=== PATIENT | female | born 1970 | race Caucasian/White ===

== ENCOUNTER 2016-04-15 17:28 | Emergency (ER) | payer OTHER ==
[~2016-04-15] VITALS: Ht 160 cm; Wt 126.0 kg
[2016-04-15 17:40] VITALS: BP 117/71; PULSE 72; RESP 21; O2SAT 100
--- NOTE | 2016-04-15 17:58 | ED.REPORT ---
HPI-Chest Pain 40 and Over Date of Service Apr 15, 2016 ED Provider: The patient is a 46 year old female with history of COPD, asthma, and anxiety who was sent to the emergency department from urgent care for left-sided chest pain that she first noticed this morning when she woke up. She states it felt like she had 2 pots of coffee and describes the pain as an ache. Her pain radiated into her left shoulder and neck. She went to the local fire station after her symptoms began to have her blood pressure checked. Her blood pressure was 197/98 and they sent her to urgent care. She had an EKG, was given aspirin, and sent to the ED. She feels like she is unable to get a full breath. She stills complains of achiness and tightness to her left chest and shoulder. She noticed some nausea this afternoon. She denies diaphoresis, lower extremity swelling or shortness of breath. Her symptoms are not similar to previous anxiety or panic attacks. The patient does report that her mother 5 weeks ago and she has been under a lot of stress. She denies history of hypertension or cardia disease. She denies family history of cardiac disease. She is a lifelong nonsmoker. Nursing Notes Stated Complaint: BLOOD PRESSURE UP, CHEST PAIN, SENT FROM [facility] Chief Complaint: Chest Pain Nursing Notes Reviewed: Yes Allergies: Coded Allergies: [place] And Derivatives (Verified Adverse Reaction, Intermediate, SORES IN MOUTH, 04/15/16) codeine (Verified Adverse Reaction, Intermediate, Nausea, 04/15/16) General Time Seen by MD: 17:58 Chief Complaint Chest pain Hx Obtained From: Patient Arrived By: Walk-in Sudden in Onset?: Yes Onset Occurred: 9 - 12 hours ago Symptom Duration: Since onset Location: : Chest left Quality: Aching, Painful Radiation: : Neck: Shoulder left Severity: Current: Moderate Severity: Maximum: Moderate Recent Healthcare: No recent hospitalization, Recent doctor visit Similar Sx Previous: No Past Medical History Past Medical History Anxiety Asthma COPD Family History Noncontributory Smoking History Former Smoker Social History Alcohol Use: Denies alcohol use Drug Use: Denies drug use Other Social History: Good social support, , Lives with children, Local resident Ambulatory Status Independent Review of Systems Respiratory: Denies: Shortness of breath Cardiovascular: Reports: Chest pain GI: Reports: Nausea Musculoskeletal: Reports: Joint pain, Neck pain Skin: Denies Diaphoresis Complete sys rev & neg: except as marked. Physical Exam Initial Vital Signs Vital Signs (First) Date Time Temp Pulse Resp B/P Pulse Ox O2 Delivery O2 Flow Rate FiO2 04/15/16 17:40 36.8 72 21 117/71 100 Room Air Initial VS: Reviewed Head / Eyes: Atraumatic, Normocephalic, PERRL ENT: Mucous membranes moist, Conjunctiva normal, No scleral icterus Neck: Supple, Non-tender, Full range of motion Lymphatic: No lymphadenopathy Extremities: Vascular intact, Neuro intact, No swelling, No tenderness Skin: Warm, Dry, No cyanosis Neurologic: Alert, Oriented, Nonfocal Psychiatric: Mood/affect normal, Behavior normal, Normal thought content General/Constitutional: Awake, Alert, No acute distress, Well appearing, Cooperative Appearance / Presentation: Positive: Obese Respiratory / Chest: Atraumatic, Breath sounds NL, Breath sounds = bilat, No respiratory distress, No rales, No rhonchi, No wheezing, No stridor, No chest tenderness Cardiovascular: Heart rate NL, Regular rhythm, Heart sounds NL, No gallop, No murmurs, No rubs, Peripheral circulation NL, Pulses = bilaterally, No gross BP differential Abdomen: Atraumatic, Soft, Non-tender, McBurney's non-tender, No guarding, No rebound, BS normoactive, No distention, No hernia, No palpable mass Interpretation & Diagnostics Lab Results Interpretation Result Diagram: 04/15/16175804/15/161758 Test 04/15/16 17:59 04/15/16 21:15 White Blood Count 11.8th/mm3 (3.8-10.1) Red Blood Count 4.69mil/mm3 (3.90-5.20) Hemoglobin 13.7g/dL (12.0-15.6) Hematocrit 40.4% (35.0-46.0) Mean Corpuscular Volume 86.1fL (81-100) Mean Corpuscular Hemoglobin 29.2pg (27.0-35.0) Mean Corpuscular Hemoglobin Concent 33.9% (32.0-37.0) Red Cell Distribution Width 13.0% (12.3-15.4) Platelet Count 182bil/L (150-400) Neutrophils (%) (Auto) 52.8% (40-74) Lymphocytes (%) (Auto) 36.0% (14-46) Monocytes (%) (Auto) 8.0% (4-12) Eosinophils (%) (Auto) 2.6% (0-5) Basophils (%) (Auto) 0.3% (0-3) Sodium Level 136mEq/L (134-144) Potassium Level 4.1mEq/L (3.5-5.2) Chloride Level 102mEq/L (97-108) Carbon Dioxide Level 22mmol/L (18-29) Blood Urea Nitrogen 11mg/dL (6-24) Creatinine 0.44mg/dL (0.57-1.00) Estimat Glomerular Filtration Rate 219mL/min (>59) Glucose Level 114mg/dL (60-99) Calcium Level 9.3mg/dL (8.5-10.1) Magnesium Level 2.0mg/dL (1.6-2.6) Total Bilirubin 0.6mg/dL (0.0-1.2) Aspartate Amino Transf (AST/SGOT) 26U/L (0-50) Alanine Aminotransferase (ALT/SGPT) 19U/L (0-32) Alkaline Phosphatase 90U/L (25-150) Total Protein 6.8g/dL (6.4-8.4) Albumin 3.6g/dL (3.4-5.0) Hold Simmons Top Tube Received (Received) Troponin T 0.010ug/L (0.0-0.011) ECG Interpretation ECG Interpretation: Normal sinus rhythm with a rate of [address] elevation No T wave inversion S wave in lead I Time: 18:13 Interpreted by: ED physician X-Ray Chest Interpretation Chest Xray Interpretation: IMPRESSION: Negative chest. Dictated by: Mele Pond M.D. on 04/15/2016 at 19:23 Interpretation / Wet Read by: Interpret - Radiologist Re-Eval/Medical Decision Med Decision/Clinical Course 46-year-old female with past medical history of anxiety here with left-sided chest pain without associated symptoms. Differential diagnosis includes but is not limited to ACS versus anxiety versus PE versus pneumonia. Chest x-ray is unremarkable. At this time, I do not feel patient has PE. She is PERC negative. Her initial troponin and 3 hour troponin are both negative. Her EKG is unremarkable. I have given her very strict return precautions and she is amenable to discharge at this time and already has a follow-up appointment scheduled with her primary care physician this week. Source of Hx: Old records Time of Eval: 19:10 Re-Evaluation/Progress Note: Rechecked the patient. Discussed lab results and plan for 3 hour troponin level. Time of Eval: 22:05 Re-Evaluation/Progress Note: Recheckd the patient. Discussed results, diagnosis, and plan for discharge. All questions were addressed. Counseled Regarding: Diagnosis, Lab results, Need for follow-up, When/why to return to ED Discharge & Departure Primary Impression: Chest pain Chest pain type: unspecified Qualified Code: R07.9 - Chest pain, unspecified Additional Impression: Hypertension Hypertension type: unspecified secondary hypertension Hypertension goal: unspecified goal Qualified Code: I15.9 - Secondary hypertension, unspecified Disposition: Home Discharge Condition All VS Reviewed: Yes Condition: Stable Patient Instructions: Chest Pain (ED) Additional Instructions: Thank you for entrusting us with your care today. Your workup today is negative. There is no evidence of a heart attack. Followup with your regular doctor in the next few days for re-evaluation. Your blood pressure was high today. You should discuss this with your regular doctor. Please return to the emergency department for any new or concerning symptoms. Scribe Attestation Portions of this note were transcribed by Aline Renee. I, Dr. Bee personally performed the history, physical exam and medical decision-making; I reviewed and confirmed the accuracy of the information in the transcribed note. Signed by: Ania Buckley, 04/15/2016 and 2210. Kriss Bee MD Apr 15, 2016 17:58 Aline Renee Apr 15, 2016 18:02
[2016-04-15 18:08] LABS: BASOPHILS % (AUTO) 0.3 % (0-3); EOSINOPHILS % (AUTO) 2.6 % (0-5); Mean Corpuscular Hemoglobin 29.2 pg (27.0-35.0); Mean Corpuscular Volume 86.1 fL (81-100); NEUTROPHILS % (AUTO) 52.8 % (40-74); Platelet Count 182 bil/L (150-400)
[2016-04-15 18:12] VITALS: BP_DIAS 64; PULSE 68; RESP 22; O2SAT 98
[2016-04-15 18:36] LABS: TROPONIN T < 0.010 ug/L (0.0-0.011)
--- NOTE | 2016-04-15 19:24 | DRSVH ---
PROCEDURE: X-RAY CHEST ONE VIEW, PORTABLE ([id number]) INDICATIONS: CP TECHNIQUE: One view of the chest was acquired. COMPARISON: None. FINDINGS: Surgical changes and devices: manager cancer leads. Lungs and pleura: No pleural effusions or pneumothorax. Lungs are clear. Mediastinum: Mediastinal contours appear normal. Heart size is normal. Bones and chest wall: No suspicious bony lesions. Overlying soft tissues appear unremarkable. IMPRESSION: Negative chest. Dictated by: Mele Pond M.D. on 04/15/2016 at 19:23 Approved by: Mele Pond M.D. on 04/15/2016 at 19:23
[2016-04-15 23:46] VITALS: BP 148/86; PULSE 84; RESP 16; O2SAT 98
== END 2016-04-15 22:24 | disposition home or self-care (01) ==
LOC: SED 17:28
DX: R07.9 Chest pain, unspecified (principal); I10 Essential (primary) hypertension; J44.9 Chronic obstructive pulmonary disease, unspecified; J45.909 Unspecified asthma, uncomplicated; F41.9 Anxiety disorder, unspecified; Z87.891 Personal history of nicotine dependence; Z88.5 Allergy status to narcotic agent